=== PATIENT | female | born 1950 ===

== ENCOUNTER 2021-04-15 14:12 | Outpatient (CLI) | payer OTHER ==
[~2021-04-15 14:12] MED LIST: BISOPROLOL FUMA10 MG PO; NABUMETONE500 MG PO; PERCOCET 5/3251 TAB PO
== END 2021-04-15 14:31 | disposition home or self-care (01) ==
LOC: MAMO-SONO 14:12
PROVIDERS: ATTEND General Practice
DX: I10 Essential (primary) hypertension (principal); Z12.31 Encounter for screening mammogram for malignant neoplasm of breast

== ENCOUNTER 2022-12-29 13:04 | Outpatient (CLI) | payer OTHER | END 2022-12-29 13:27 | disposition home or self-care (01) | LOC: MAMO-SONO 13:04 | PROVIDERS: ATTEND Internal Medicine Cardiovascular Disease | DX: Z12.31 Encounter for screening mammogram for malignant neoplasm of breast (principal) ==